=== PATIENT | male | born 1970 | race Two or more races ===

== ENCOUNTER 2017-01-08 15:18 | Emergency (ER) | payer OTHER ==
[~2017-01-08] VITALS: Ht 160 cm; Wt 63.5 kg
[2017-01-08 15:30] VITALS: BP 138/75
--- NOTE | 2017-01-08 16:21 | Emergency Room Report ---
History of Present Illness General Chief Complaint: Flu Like Symptoms Source: Patient Present Illness HPI 46YOM walk-in with one week dry cough with pleuritic chest pain, measured fever to 103 at home, chills, myalgias, sick contacs at home. Taking Dayquill/ Nyquill without improvement. Denies smoking, COPD/asthma, other medical problems. Allergies: Coded Allergies: No Known Allergies (Unverified , 01/08/17) Patient History Past Medical History: none Past Surgical History: none Pertinent Family History: none Social History: Denies: alcohol use, drug use, smoking Immunizations: UTD Reviewed Nursing Documentation: PMH: Agreed, PSxH: Agreed Nursing Documentation-PMH Past Medical History: No Stated History Review of Systems All Other Systems: negative except mentioned in HPI Physical Exam Vital Signs Date Time Temp Pulse Resp B/P Pulse Ox O2 Delivery O2 Flow Rate FiO2 01/08/17 15:23 98.8 79 20 111/66 97 Room Air Sp02 EP Interpretation: reviewed, normal General Appearance: normal inspection, well appearing, no apparent distress, alert, GCS 15, non-toxic Head: normocephalic, atraumatic Eyes: bilateral eye EOMI, bilateral eye PERRL ENT: normal ENT inspection, hearing grossly normal, normal voice Neck: normal inspection, full range of motion, supple, no bony tend Respiratory: normal inspection, lungs clear, normal breath sounds, no respiratory distress, no retraction, no wheezing Cardiovascular #1: regular rate, rhythm, no edema Gastrointestinal: normal inspection, normal bowel sounds, non tender, soft, no guarding, no hernia Genitourinary: no CVA tenderness Musculoskeletal: normal inspection, back normal, normal range of motion, Za' s Sign negative Neurologic: normal inspection, alert, oriented x3, responsive, laboratory aide III-XII nml as tested, motor strength/tone normal Psychiatric: normal inspection, judgement/insight normal, mood/affect normal Skin: normal inspection, normal color, no rash, warm/dry, palpation normal Medical Decision Making Diagnostic Impression: Primary Impression: Community acquired pneumonia Additional Impression: Cough ER Course 46YOM with URI symptoms. VSS. Afebrile No obvious source of bacterial infection in oropharynx, ears, lungs, skin, abdomen on exam Well appearing Advised supportive treatment PMD followup DC home Understands to return for worsening symptoms - Use albuterol and T#3 as needed for cough, body aches - Zpack given fever, duration of symptoms, ?CAP - Follow up with your primary care doctor in 2-3 days Chest X-Ray Diagnostic Results EP Interpretation: Yes Findings: no consolidation, no effusion, no pneumothorax, no acute cardiopulmonary disease Number of Views: 1 Last Vital Signs Date Time Temp Pulse Resp B/P Pulse Ox O2 Delivery O2 Flow Rate FiO2 01/08/17 15:23 98.8 79 20 111/66 97 Room Air Status: improved Disposition: HOME, SELF-CARE Scripts Azithromycin* (ZITHROMAX*) 250 Mg Tablet 250 MG ORAL DAILY, #6 TAB 0 Refills Take two tables once daily for 1 day, then one tablet once daily for 4 days. Prov: TASHI SHERMAN M.D. 01/08/17 Acetaminophen With Codeine (T#3) (TYLENOL #3 TAB*) Y Tab 1 TAB ORAL Q4H Y for cough, pain for 7 Days, #20 TAB Prov: TASHI SHERMAN M.D. 01/08/17 Albuterol Sulfate (VENTOLIN HFA) 18 Gm Hfa.aer.ad 1 PUFF INH EVERY 6 HOURS for For Cough, #18 GM 0 Refills Prov: TASHI SHERMAN M.D. 01/08/17 TASHI SHERMAN M.D. Jan 08, 2017 16:21
[2017-01-08] MEDS ORDERED: ACETAMINOPHEN-1 EAC1 ORAL (16:23)
[2017-01-08] MEDS ORDERED: ZITHROMAX250 MG ORAL (16:23)
[2017-01-08] MEDS ORDERED: VENTOLIN HFA18 GM INH (16:23)
[2017-01-08] MEDS ORDERED: Albuterol ud Inhalation HHN ONE (16:45)
[2017-01-08 17:06] VITALS: BP 132/74
--- NOTE | 2017-01-09 12:15 | Diagnostic Imaging Report ---
Indication: Dyspnea Comparison: None A single view chest radiograph was obtained. Findings: Cardiomediastinal appearance is within normal limits for age. Pulmonary vascularity is appropriate. The diaphragmatic contour is smooth and costophrenic angles are sharp. No pleural effusions are identified. The bones are unremarkable. Impression: No acute findings
== END 2017-01-08 17:13 | disposition home or self-care (01) ==
LOC: EMR 15:40
DX: J18.9 Pneumonia, unspecified organism (principal); R05 Cough
CPT/HCPCS: 71010; 94640; 94664; 99284